=== PATIENT | male | born 1995 | race Caucasian/White ===

== ENCOUNTER 2017-03-10 20:11 | Emergency (ER) | payer BC, OTHER ==
[~2017-03-10] VITALS: Ht 182.9 cm; Wt 98.0 kg
[~2017-03-10 20:11] MED LIST: ALL180 PO; SNG10 PO
[2017-03-10 20:22] VITALS: TEMP 37.3; Ht 182.9 cm; Wt 98.0 kg
--- NOTE | 2017-03-10 20:51 | DIAGNOSTIC IMAGING REPORT ---
RIGHT ANKLE MIN 3 VIEWS ROUTINE CLINICAL HISTORY: Right ankle pain status post trauma COMPARISON: None. DISCUSSION: No fractures or dislocations are visualized. There is lateral soft tissue swelling IMPRESSION: No fractures or dislocations identified. Electronically signed by: Sonny De M.D. 03/10/2017 8:49 PM Dictated Date/Time: 03/10/2017 8:49 PM
[2017-03-10 21:24] VITALS: BP 143/84; PULSE 86; O2SAT 96
--- NOTE | 2017-03-11 01:33 | EMERGENCY ROOM VISIT NOTE ---
ED Visit Note First contact with patient: 20:27 CHIEF COMPLAINT: Right ankle pain. HISTORY OF PRESENT ILLNESS: Mr. Littlejohn is a 21-year old white male who is brought via wheelchair into the ED accompanied by his girlfriend complaining of right lateral ankle pain. Patient reports approximately 1 hour ago he playing softball. He reports he was sliding into third base and reported that his cleats were trapped in the dirt and he twisted his right ankle. He reports since the injury he has had constant pain over the lateral aspect of the right ankle. He describes his pain as a burning and throbbing sensation. He rates his discomfort 7/10. The pain is predominantly located over the lateral malleolus and ligamentous structures. His pain worsens with palpation and all movements of the ankle. He has not identified any alleviating factors related to the pain. He has not had any medication for pain prior to arrival at the hospital. Patient denies any associated hip pain, thigh pain, knee pain, proximal lower leg pain, foot pain, leg weakness/numbness/tingling. Patient denies any previous significant injuries or surgeries to the ankle or foot. REVIEW OF SYSTEMS: As noted above in History of Present Illness; at least 8 body systems were reviewed with the patient found to be negative unless noted above otherwise. PAST MEDICAL HISTORY: Patient denies. CURRENT MEDICATIONS: Patient denies. ALLERGIES TO MEDICATIONS: Patient denies. SOCIAL HISTORY: Patient is currently employed; he feels safe in his home environment; he denies tobacco and alcohol use. PHYSICAL EXAM: Vital Signs: Date Time Temp Pulse Resp B/P Pulse Ox O2 Delivery O2 Flow Rate FiO2 03/10/17 21:24 86 16 143/84 96 Room Air 03/10/17 20:22 37.3 117 18 146/86 97 Room Air General: 21 year old male in mild/moderate distress due to pain, nontoxic- appearing, afebrile and hemodynamically stable. Neurological: Awake, alert, oriented to person place and time. Answering questions appropriately and following commands. Skin: Warm dry and pink. Patient has no soft tissue abrasions over the anterior aspect of the right knee and lateral aspect of the right leg with no active bleeding. Right Lower Extremity: No gross april deformities. No shortening or malrotation of the extremity. No tenderness in the hip, thigh, knee, lower leg or foot. Moderate tenderness over the lateral malleolus and the surrounding ligamentous structures with mild to moderate swelling but no bony deformity or crepitus. I do not appreciate any ligamentous laxity with testing. He does have full range of motion in plantar flexion, dorsiflexion, inversion and eversion of the ankles and flexion and extension of all the toes and plantar flexion and dorsiflexion of the ankles against resistance. Throughout the foot the skin is pink and warm with brisk capillary refill. Able to distinguish light sensations through all dermatomes of the foot. ED COURSE: Patient is assessed as noted above. Right Ankle X-Rays: Were read by myself and the radiologist and shows no acute fractures or dislocations. Mild to moderate lateral swelling. Patient is given ice for pain, swelling and comfort; patient was offered pain medications and refused. Patient is placed in a gel splint and is instructed on crutch use. Patient is educated about his condition and instructed on his treatment plan; he verbalizes understanding and agreement with the our plan. CLINICAL IMPRESSION: Right ankle sprain. DISPOSITION: Patient is discharged to home in stable condition accompanied by his girlfriend; prior to departure he was reassessed and subjectively reported he was feeling better and rated his discomfort 3/10. PLAN: Comfort measures were discussed with the patient. Patient was encouraged to follow-up with orthopedics if no better in 7-10 days. Patient was encouraged return the ED for worsening/uncontrolled pain, uncontrolled swelling or any new/concerning symptoms.
== END 2017-03-10 21:28 | disposition home or self-care (01) ==
LOC: C.EDB 20:12 → C.EDD 21:28
DX: S93.401A Sprain of unspecified ligament of right ankle, initial encounter (principal); X50.9XXA Other and unspecified overexertion or strenuous movements or postures, initial encounter; Y92.320 Baseball field as the place of occurrence of the external cause; Y93.64 Activity, baseball; S80.211A Abrasion, right knee, initial encounter; S80.811A Abrasion, right lower leg, initial encounter